=== PATIENT | female | born 1990 | race Caucasian/White ===

== ENCOUNTER 2018-01-07 21:24 | Emergency (ER) | payer OTHER, SELFPAY ==
--- NOTE | 2018-01-07 21:59 | RAD ---
LEFT ANKLE: 01/07/18 Three views. HISTORY: Ankle pain. Soft tissue swelling at the ankle. Mild degenerative change with mild spurring from the medial malleo maurice. No evidence of fracture. Enthesophytes from the plantar and posterior calcaneus noted. There is a subtle lucency in the talar dome best appreciated on oblique views. This could potentially represent osteochondral defect. This could be further evaluated with MRI if indicated. IMPRESSION: 1. Mild degenerative changes. 2. Lucency in the talar dome could potentially represent an osteochondral defect. 3. No acute fracture. POS: [facility]
--- NOTE | 2018-01-07 22:01 | RAD ---
LEFT FOOT: 01/07/18 Three views. HISTORY: Left foot pain. Enthesophytes from the plantar and posterior calcaneus. Mild spurring of the anterior tibia at the ti biotalar joint. Mild spurring in the inner tarsal joints and at the tarsometatarsal joints. MTP joint s unremarkable. No acute fracture identified. IMPRESSION: Degenerative changes as described. No acute fracture identified. POS: [facility]
== END 2018-01-07 22:37 | disposition home or self-care (01) ==
LOC: SCSER 21:24
DX: M79.672 Pain in left foot (principal)

== ENCOUNTER 2021-09-03 10:45 | Emergency (ER) | payer OTHER, SELFPAY ==
[2021-09-03] MEDS ORDERED: Ondansetron PF 4 MG/2 ML Vial ONE (11:23)
[2021-09-03] MEDS ORDERED: Ketorolac Tromethamine 30 MG/ML VIAL ONE (11:23)
[2021-09-03 11:47] LABS: #Basophils 0.1 thou/uL (0.0-0.2); #Eosinphils 0.3 thou/uL (0.0-0.7); #Lymphocytes 2.7 thou/uL (1.20-3.40); #Monocytes 0.9 thou/uL (0.11-0.59); #Neutrophils 5.7 thou/uL (1.40-6.50); %Basophils 0.6 % (0.0-1.0); %Eosinophils 3.1 % (0.0-10.0); %Lymphocytes 27.7 % (21.0-51.0); %Monocytes 9.2 % (0.0-10.0); %Neutrophils 59.5 % (42.0-75.0); Hemoglobin 13.6 g/dL (12.0-16.0); Mean Corpuscular HGB CONC 33.9 g/dL (32.0-36.0); Mean Corpuscular Hemoglobin 30.7 pg (27.0-31.0); Mean Corpuscular Volume 90.3 fL (78.0-98.0); Mean Platelet Volume 9.1 fL (7.4-10.4); Platelet Count 277 thou/uL (130-400); RBC Distribution Width 11.7 % (11.5-14.5); Red Blood Cell (RBC) Count 4.43 mill/uL (4.20-5.40); White Blood Cell (WBC) Count 9.6 thou/uL (4.8-10.8)
[2021-09-03 12:09] LABS: Bilirubin Negative (Negative); Blood, Urine 3+ (Negative); Clarity Turbid (Clear); Glucose, Urine (Dipstick) Normal (Negative); Ketone, Urine Negative (Negative); Leukocyte 75 Leu/uL (Negative); Nitrite Negative (Negative); Protein, Urine (Dipstick) 100 mg/dL (Neg-Trace); RBC/HPF Greater than 50 HPF (0-3); Specific Gravity, Urine 1.032 (1.002-1.036); Urobilinogen Normal mg/dL (Less than 2); WBC/HPF 21-50 HPF (0-3)
[2021-09-03 12:10] LABS: Bacteria/HPF 1+ HPF (None Seen); Pregnancy Test - Urine (BHCG) Negative (Negative); Pregu Control Background? CLEAR/WHITE (CLR/WHITE); Pregu Control Bar Appear? YES (CONTROL BAR); Specific Gravity 1.032 (1.002-1.036)
[2021-09-03 12:19] LABS: ALT (SGPT) 17 U/L (8-55); AST (SGOT) 13 U/L (5-34); Albumin 4.2 g/dL (3.5-5.0); Alkaline Phosphatase 69 U/L (40-110); Anion Gap 12 mmol/L (10-20); BUN (Urea Nitrogen) 11 mg/dL (7.0-18.7); Bilirubin, Total 0.2 mg/dL (0.2-1.2); Calc. Creatinine Clearance 0 mL/min (70-130); Calcium 9.1 mg/dL (7.8-10.44); Carbon Dioxide 24 mmol/L (22-29); Chloride 107 mmol/L (98-107); Globulin 2.5 g/dL (2.4-3.5); Glucose 104 mg/dL (70-105); Potassium 4.2 mmol/L (3.5-5.1); Protein, Total 6.7 g/dL (6.0-8.3); Sodium 139 mmol/L (136-145)
[2021-09-03] MEDS ORDERED: cefTRIAXone\\ROCEPHIN 2 GM VIAL ONE (12:33)
== END 2021-09-03 13:50 | disposition home or self-care (01) ==
LOC: ERS 10:45
DX: R10.9 Unspecified abdominal pain (principal); R31.9 Hematuria, unspecified; R11.0 Nausea; F17.200 Nicotine dependence, unspecified, uncomplicated
CPT/HCPCS: 74176; 80053; 81003; 81015; 81025; 85025; 87086; 96365; 96375; J0696; J1885; J2405